=== PATIENT | female | born 1965 | race Caucasian/White ===

== ENCOUNTER 2021-01-06 01:05 | Emergency (ER) | payer OTHER ==
[~2021-01-06] VITALS: Ht 154.9 cm; Wt 104.3 kg
[~2021-01-06 01:05] MED LIST: LORA10OD3 PO
--- NOTE | 2021-01-06 01:10 | NUR ---
PT AMBULATED TO BED #9
[2021-01-06 01:12] VITALS: BP 143/78
--- NOTE | 2021-01-06 01:15 | NUR ---
C/C HEAD INJURY R/T FALL. PT REPORTS SHE WAS CHASING HER DOG WHEN SHE FELL AND HIT THE BACK OF HER HEAD ON THE CONCRETE. NOTED WITH HEMATOMA TO BACK OF HEAD, BLEEDING CONTROLLED. DENIES LOSS OF CONSCIOUSNESS. MED HX: ASTHMA ALLERGIES: NKA
--- NOTE | 2021-01-06 01:28 | NUR ---
PT TAKEN TO CT VIA W.C.
[2021-01-06] MEDS ORDERED: LIDOCAINE/EPI 1% 1:100000 20 ML VIAL INJ ONE (01:30)
--- NOTE | 2021-01-06 01:35 | NUR ---
PT RETURED FROM CT VIA W.C.
[2021-01-06] MEDS ORDERED: BACITRACIN OINT 500 UNITS/GM PKT TP ONE (02:00)
[2021-01-06] MEDS ORDERED: HYDROcodone/APAP 5/325 MG 1 TAB TAB PO ONE (02:00)
[2021-01-06] MEDS ORDERED: KETOROLAC 30 MG/ML VIAL IM ONE (02:00)
[2021-01-06] MEDS ORDERED: ACET-8386 PO (02:12)
[2021-01-06] MEDS ORDERED: BACI1PAC6 TP (02:12)
--- NOTE | 2021-01-06 02:18 | NUR ---
RESIDENT MD AT BEDSIDE FOR PROCEDURE.
--- NOTE | 2021-01-06 03:12 | NUR ---
Patient discharged with v/s stable. Written and verbal after care instructions given and explained. Patient alert, oriented and verbalized understanding of instructions. Ambulatory with steady gait. All questions addressed prior to discharge. ID band removed. Patient advised to follow up with PMD. Rx of BACITRACIN AND NORCO given. Patient educated on indication of medication including possible reaction and side effects. Opportunity to ask questions provided and answered.
== END 2021-01-06 03:12 | disposition home or self-care (01) ==
LOC: MED 01:05
DX: S01.01XA Laceration without foreign body of scalp, initial encounter (principal); J45.909 Unspecified asthma, uncomplicated; Z79.899 Other long term (current) drug therapy; W19.XXXA Unspecified fall, initial encounter; Y93.89 Activity, other specified; Y92.89 Other specified places as the place of occurrence of the external cause; Y99.8 Other external cause status
CPT/HCPCS: 12002; 70450; 90471; 90715; 96372; 99284; J1885; J2001

== ENCOUNTER 2021-01-09 01:50 | Emergency (ER) | payer OTHER ==
[~2021-01-09] VITALS: Ht 149.9 cm; Wt 86.2 kg
[~2021-01-09 01:50] MED LIST changes: +ACET-8386 PO; +BACI1PAC6 TP
[2021-01-09 02:02] VITALS: BP 141/77
--- NOTE | 2021-01-09 02:09 | NUR ---
TO ROOM FROM TRIAGE, AMBULATORY
[2021-01-09 03:27] VITALS: BP 141/77
--- NOTE | 2021-01-09 03:27 | NUR ---
SEEN AND DISCHARGED BY PATIENCE MURRAY. NO NURSING INTERVENTIONS NEEDED. Patient discharged with v/s stable. Written and verbal after care instructions given and explained. Patient verbalized understanding. Ambulatory with steady gait. All questions addressed prior to discharge. Advised to follow up with PMD.
== END 2021-01-09 03:27 | disposition home or self-care (01) ==
LOC: MED 01:50
DX: S01.91XD Laceration without foreign body of unspecified part of head, subsequent encounter (principal); J45.909 Unspecified asthma, uncomplicated; Z79.899 Other long term (current) drug therapy; X58.XXXD Exposure to other specified factors, subsequent encounter
CPT/HCPCS: 99281

== ENCOUNTER 2021-03-09 07:28 | Emergency (ER) | payer OTHER ==
[~2021-03-09] VITALS: Ht 149.9 cm; Wt 89.8 kg
[2021-03-09 07:39] VITALS: BP 161/93
[2021-03-09] MEDS ORDERED: ALBUTEROL SULFATE/IPRATROPIU 3 ML SOL IH ONE ×3 (08:00→09:20)
--- NOTE | 2021-03-09 08:06 | NUR ---
LAB AT BEDSIDE.
--- NOTE | 2021-03-09 08:11 | NUR ---
56 Y/O F C/O SOB FOR PAST 3 MOTHS, MID CHEST AND LOWER ABD PAIN FOR PAST 2 DAYS, ASLO L ARM PAIN FOR THE PAST WEEK. O2 ON ROOM AIR IS 98%. HX: ASTHMA, HLD, PRE DM, OSTEOARTHRITIS
--- NOTE | 2021-03-09 08:12 | NUR ---
RT AT BEDSIDE.
[2021-03-09 08:19] LABS: BASOPHILS # (AUTO) 0.1 K/uL (0.00-0.22); EOSINOPHILS # (AUTO) 0.4 K/uL (0-0.4); EOSINOPHILS % (AUTO) 5.5 % (0.0-4.0); HEMATOCRIT 41.1 % (36-48); HEMOGLOBIN 13.7 g/dL (12.0-16.0); LYMPHOCYTES # (AUTO) 2.7 K/uL (2.5-16.5); LYMPHOCYTES % (AUTO) 34.3 % (20.5-51.1); MEAN CORPUSCULAR HEMOGLOBIN 27 pg (27-31); MEAN CORPUSCULAR HGB CONC 33 g/dL (33-37); MEAN CORPUSCULAR VOLUME 80.6 fL (80-94); MONOCYTES # (AUTO) 0.8 K/uL (0.8-1.0); MONOCYTES % (AUTO) 10.6 % (1.7-9.3); NEUTROPHILS # (AUTO) 3.8 K/uL (1.8-7.7); NEUTROPHILS % (AUTO) 48.6 % (42.2-75.2); PLATELET COUNT (AUTO) 305 K/uL (140-450); RED CELL DISTRIBUTION WIDTH 14.2 % (11.6-13.7); WHITE BLOOD COUNT (AUTO) 7.8 K/uL (4.8-10.8)
[2021-03-09 08:27] LABS: ANION GAP 12.4 (8-16); CARBON DIOXIDE 26.2 mmol/L (21-32); CREATININE 0.7 mg/dL (0.6-1.3); POTASSIUM 3.6 mmol/L (3.5-5.1)
--- NOTE | 2021-03-09 08:37 | NUR ---
PATIENT TO X-RAY VIA WHEELCHAIR.
--- NOTE | 2021-03-09 09:03 | NUR ---
DR HUMPHREYS AT BEDSIDE FOR ULTRASOUND.
[2021-03-09] MEDS ORDERED: PRED20TA5 PO (09:18)
[2021-03-09] MEDS ORDERED: PRON INH (09:18)
[2021-03-09] MEDS ORDERED: IPRA2.5S49 IH (09:18)
[2021-03-09] MEDS ORDERED: [UNRECOGNIZED DRUG - CODE] MM (09:20)
[2021-03-09] MEDS ORDERED: FLUCONAZOLE 100 MG TAB PO ONE (09:20)
--- NOTE | 2021-03-09 09:22 | NUR ---
RT AT BEDSIDE.
--- NOTE | 2021-03-09 09:36 | NUR ---
Note kriss in EDM - 03/09/21 at 0942 by [email or web address] Patient discharged with v/s stable. Written and verbal after care instructions given and explained. Patient alert, oriented and verbalized understanding of instructions. Ambulatory with steady gait. All questions addressed prior to discharge. ID band removed. Patient advised to follow up with PMD. Rx of CLOTRIMAZOLE,IPRATROPIUM BROMIDE, PREDNISONE, ALBUTEROL SULFATE given. Opportunity to ask questions provided and answered.
[2021-03-09 10:02] VITALS: BP 150/89
--- NOTE | 2021-03-09 10:04 | NUR ---
Patient discharged with v/s stable. Written and verbal after care instructions given and explained. Patient alert, oriented and verbalized understanding of instructions. Ambulatory with steady gait. All questions addressed prior to discharge. ID band removed. Patient advised to follow up with PMD. Rx of CLOTRIMAZOLE,IPRATROPIUM BROMIDE, PREDNISONE, ALBUTEROL SULFATE given. Opportunity to ask questions provided and answered.
--- NOTE | 2021-03-09 10:05 | NUR ---
Chart checked and completed. The patient's care was reviewed and supervised by Erma Cabral RN.
== END 2021-03-09 10:02 | disposition home or self-care (01) ==
LOC: MED 07:28
DX: J45.901 Unspecified asthma with (acute) exacerbation (principal); B37.3 Candidiasis of vulva and vagina; E66.9 Obesity, unspecified; J45.909 Unspecified asthma, uncomplicated; Z68.41 Body mass index [BMI] 40.0-44.9, adult; Z79.899 Other long term (current) drug therapy
CPT/HCPCS: 36415; 71046; 80048; 83880; 84484; 85025; 93005; 94640; 99284

== ENCOUNTER 2022-02-14 12:10 | Emergency (ER) | payer OTHER ==
[~2022-02-14] VITALS: Ht 147.3 cm; Wt 73.9 kg
[~2022-02-14 12:10] MED LIST changes: +IPRA2.5S49 IH; +PRED20TA5 PO; +PRON INH; +[UNRECOGNIZED DRUG - CODE] MM
[2022-02-14 12:14] VITALS: BP 143/89
--- NOTE | 2022-02-14 12:26 | NUR ---
DR CHAMBERLAIN AT BEDSIDE EVALUATING PT
[2022-02-14] MEDS ORDERED: ALBUTEROL SULFATE/IPRATROPIU 3 ML SOL IH ONE (12:30)
[2022-02-14] MEDS ORDERED: methylPREDNISolone SS 125 MG/2 ML VIAL IVP ONE (12:30)
--- NOTE | 2022-02-14 12:44 | NUR ---
RAD AT BEDSIDE
--- NOTE | 2022-02-14 12:45 | NUR ---
DUONEB BREATHING TX GIVEN AT THIS TIME. V/S STABLE, PT STATES MILD RELIEF POST TX.
[2022-02-14 12:58] LABS: BASOPHILS # (AUTO) 0.1 K/uL (0.00-0.22); BASOPHILS % (AUTO) 1.4 % (0.0-2.0); EOSINOPHILS # (AUTO) 0.6 K/uL (0-0.4); EOSINOPHILS % (AUTO) 9.1 % (0.0-4.0); HEMATOCRIT 41.2 % (36-48); HEMOGLOBIN 13.6 g/dL (12.0-16.0); LYMPHOCYTES # (AUTO) 2.3 K/uL (2.5-16.5); LYMPHOCYTES % (AUTO) 36.5 % (20.5-51.1); MEAN CORPUSCULAR HEMOGLOBIN 26 pg (27-31); MEAN CORPUSCULAR HGB CONC 33 g/dL (33-37); MONOCYTES # (AUTO) 0.6 K/uL (0.8-1.0); MONOCYTES % (AUTO) 10.4 % (1.7-9.3); NEUTROPHILS # (AUTO) 2.7 K/uL (1.8-7.7); NEUTROPHILS % (AUTO) 42.6 % (42.2-75.2); PLATELET COUNT (AUTO) 298 K/uL (140-450); RED BLOOD CELL COUNT(AUTO) 5.15 MIL/uL (4.20-5.40); WHITE BLOOD COUNT (AUTO) 6.2 K/uL (4.8-10.8)
--- NOTE | 2022-02-14 13:30 | NUR ---
57YO FEMALE PT C/O SOB [id number]. STATES MILD AFTER USING INHALER OR NEBULIZER. PRADEEP WHEEZING NOTED, RESPIRATIONS EVEN AND UNLABORED. DENIES CHEST PAIN, N/V/D, FEVER OR CHILLS. 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 BED AT LOWEST POSITION.BED RAILS UPX2 HX: OSTEOARTHRITIS, HTN, HLD, ASTHMA, DIABETES NKA
[2022-02-14 14:04] LABS: ALBUMIN 3.4 g/dL (3.4-5.0); CREATININE 0.7 mg/dL (0.6-1.3); TOTAL BILIRUBIN 0.4 mg/dL (0.0-1.0)
[2022-02-14] MEDS ORDERED: PRED20TA5 PO (14:27)
[2022-02-14 14:48] LABS: ANION GAP 11.9 (8-16); POTASSIUM 3.9 mmol/L (3.5-5.1)
[2022-02-14] MEDS ORDERED: ALBU0.0912 IH (15:10)
[2022-02-14 15:15] VITALS: BP 136/76
--- NOTE | 2022-02-14 15:15 | NUR ---
Patient discharged with v/s stable. Written and verbal after care instructions FOR ASTHMA given and explained. Patient alert, oriented and verbalized understanding of instructions. Ambulatory with steady gait. All questions addressed prior to discharge. ID band removed. Patient advised to follow up with PMD. Rx of PREDNISONE given.. Opportunity to ask questions provided and answered.
--- NOTE | 2022-02-14 15:16 | NUR ---
The patient's care was reviewed and supervised by Wendi Byrne RN.
== END 2022-02-14 15:15 | disposition home or self-care (01) ==
LOC: MED 12:10
DX: J45.901 Unspecified asthma with (acute) exacerbation (principal); Z20.822 Contact with and (suspected) exposure to COVID-19; E78.00 Pure hypercholesterolemia, unspecified
CPT/HCPCS: 36415; 71045; 80053; 83880; 84484; 85025; 85379; 87426; 93005; 94640; 96374; 99285; J2930